=== PATIENT | female | born 1955 | race Caucasian/White ===

== ENCOUNTER 2024-01-14 13:55 | Inpatient (IN) | payer MEDICARE ==
[~2024-01-14] VITALS: Ht 157.5 cm; Wt 73.4 kg
[2024-01-14 14:32] LABS: BASOPHILS # (AUTO) 0.04 K/uL (0.00-0.20); BASOPHILS % (AUTO) 0.1 % (0.0-5.0); EOSINOPHILS # (AUTO) 0.01 K/uL (0.00-0.70); HEMATOCRIT 35.9 % (36-48); IMMATURE GRANULOCYTE ABSOLUTE 0.26 K/uL (0-1); LYMPHOCYTES # (AUTO) 3.6 K/uL (1.0-4.8); LYMPHOCYTES % (AUTO) 12.5 % (21.0-51.0); MEAN CORPUSCULAR HGB CONC 32.3 g/dL (32.0-36.0); MEAN CORPUSCULAR VOLUME 86.5 fL (79-99); MONOCYTES # (AUTO) 1.3 K/uL (0.1-1.0); MONOCYTES % (AUTO) 4.4 % (3.0-13.0); NEUTROPHILS # (AUTO) 23.7 K/uL (1.8-7.7); NEUTROPHILS % (AUTO) 82.1 % (40.0-77.0); PLATELET COUNT (AUTO) 254 K/uL (130-400); RED BLOOD CELL COUNT(AUTO) 4.15 MIL/uL (4.00-5.50); RED CELL DISTRIBUTION WIDTH 14.1 % (11.0-15.5); WHITE BLOOD COUNT (AUTO) 28.9 K/uL (4.8-10.8)
[2024-01-14 14:59] LABS: CREATININE 1.2 mg/dL (0.5-1.0); POTASSIUM 3.2 mmol/L (3.5-5.1)
[2024-01-14 15:03] LABS: ALBUMIN 2.6 g/dL (3.5-5.0); BILIRUBIN,TOTAL 0.7 mg/dL (0.2-1.0); TOTAL PROTEIN, SERUM 7.1 g/dL (6.0-8.3)
[2024-01-14 15:16] LABS: B-TYPE NATRIURETIC PEPTIDE 102 pg/mL (0-100)
[2024-01-14] MEDS ORDERED: IOHEXOL-350 50ML VIAL IV ONE (15:17)
[2024-01-14] MEDS: CEFTRIAXONE 2GM VIAL IVPB ONE (15:29)
[2024-01-14] MEDS: 0.9%NACL 1000ML 1,000 ML IV ONE (15:29)
[2024-01-14] MEDS ORDERED: LACTULOSE 20 GM/30 ML UDCUP PO PRN (16:30)
[2024-01-14] MEDS ORDERED: acetaMINOPHEN 325 MG TAB PO PRN ×3 (16:30)
[2024-01-14] MEDS ORDERED: ONDANSETRON 4MG INJ IV PRN (16:30)
[2024-01-14] MEDS ORDERED: DiphenhydrAMINE HCL 50 MG/ML VIAL IV PRN (16:30)
[2024-01-14] MEDS ORDERED: KETOROLAC 15MG/ML VIAL (15MG/ML) IV PRN (16:30)
[2024-01-14] MEDS: cefTRIAXone 1G VIAL 1 GM in 0.9%NACL 50ML 50 ML IV SCH (16:30)
[2024-01-14] MEDS ORDERED: ALBUTEROL 0.083% 2.5 MG/3 ML INH IH PRN (16:30)
[2024-01-14] MEDS ORDERED: NITROGLYCERIN 0.4 MG SL TAB SL PRN (16:30)
[2024-01-14] MEDS ORDERED: MAG/ALUM/SIMETH 30 ML UDCUP PO PRN (16:30)
[2024-01-14] MEDS ORDERED: FAMOTIDINE 20MG VIAL IV PRN (16:30)
[2024-01-14] MEDS ORDERED: VANCOMYCIN PROTOCOL PER PHARMACY IV PRN (16:30)
[2024-01-14] MEDS: INSULIN HUMULIN R 100 UNIT/ML 3ML SQ SCH (16:30)
[2024-01-14] MEDS ORDERED: hydrALAZine 20MG/ML VIAL IV PRN (16:30)
[2024-01-14] MEDS ORDERED: ZOLPidem TARTrate 5 MG TAB PO PRN (16:30)
[2024-01-14] MEDS: POTASSIUM BICARB/CIT AC 25 MEQ TABLET.EFF PO ONE (16:46)
[2024-01-14] MEDS: AZITHROMYCIN 500MG+NS 250ML 250 ML IVPB STA (16:47)
[2024-01-14 17:19] VITALS: PULSE 91; RESP 18
[2024-01-14] MEDS: ALBUTEROL 0.083% 2.5 MG/3 ML INH IH SCH (17:27)
[2024-01-14] MEDS: ALBUTEROL 0.083% 2.5 MG/3 ML INH IH ONE (17:27)
[2024-01-14 17:30] LABS: INR 1.32 (0.85-1.15)
[2024-01-14 17:32] LABS: PARTIAL THROMBOPLASTIN TIME 35.3 SEC (26.3-35.5)
[2024-01-14] MEDS: 0.9%NACL 1000ML 1,000 ML IV SCH (17:46)
[2024-01-14] MEDS: HEPARIN 25,000 UNITS/250ML D5W 250 ML IV SCH (17:48)
[2024-01-14] MEDS ORDERED: PANT40TA54 PO (18:00)
[2024-01-14] MEDS ORDERED: BENZ-226 PO (18:00)
[2024-01-14] MEDS ORDERED: IPRA21SP NS (18:00)
[2024-01-14] MEDS ORDERED: FEXO-263 PO (18:00)
[2024-01-14] MEDS ORDERED: FURO20TA4 PO (18:00)
[2024-01-14] MEDS ORDERED: FLUT16H NASAL (18:00)
[2024-01-14] MEDS ORDERED: HYDR-4060 PO (18:00)
[2024-01-14] MEDS ORDERED: ERGO2000 PO (18:00)
[2024-01-14] MEDS: HEPARIN 5,000 UNIT VIAL IV PRN (18:49)
[2024-01-14] MEDS: VANCOMYCIN 1G/250ML KIT 250 ML IV SCH (18:50)
[2024-01-14] MEDS: FAMOTIDINE 20MG VIAL IV SCH (20:28)
[2024-01-14 21:04] VITALS: PULSE 92; RESP 18; O2SAT 98
[2024-01-14 22:36] LABS: INR 1.11 (0.85-1.15); PROTHROMBIN TIME 11.9 SEC (9.6-11.6)
[2024-01-14 22:37] LABS: PARTIAL THROMBOPLASTIN TIME 48.7 SEC (26.3-35.5)
[2024-01-15] VITALS (18 sets, daily range): BP systolic 102–146; BP diastolic 44–69; PULSE 88–148; RESP 18–37; O2SAT 94–98
[2024-01-15 01:09] LABS: HEMOGLOBIN A1C 6.3 % (4.0-6.0)
[2024-01-15 04:04] LABS: BASOPHILS # (AUTO) 0.06 K/uL (0.00-0.20); BASOPHILS % (AUTO) 0.2 % (0.0-5.0); EOSINOPHILS # (AUTO) 0.05 K/uL (0.00-0.70); EOSINOPHILS % (AUTO) 0.2 % (0.0-8.0); HEMATOCRIT 30.4 % (36-48); IMMATURE GRANULOCYTE ABSOLUTE 0.24 K/uL (0-1); LYMPHOCYTES # (AUTO) 3.8 K/uL (1.0-4.8); MEAN CORPUSCULAR HEMOGLOBIN 28.4 pg (27.0-33.0); MEAN CORPUSCULAR HGB CONC 32.6 g/dL (32.0-36.0); MEAN CORPUSCULAR VOLUME 87.4 fL (79-99); MONOCYTES # (AUTO) 1.6 K/uL (0.1-1.0); MONOCYTES % (AUTO) 6.3 % (3.0-13.0); NEUTROPHILS # (AUTO) 19.5 K/uL (1.8-7.7); NEUTROPHILS % (AUTO) 77.3 % (40.0-77.0); PLATELET COUNT (AUTO) 261 K/uL (130-400); RED BLOOD CELL COUNT(AUTO) 3.48 MIL/uL (4.00-5.50); RED CELL DISTRIBUTION WIDTH 14.2 % (11.0-15.5); WHITE BLOOD COUNT (AUTO) 25.2 K/uL (4.8-10.8)
[2024-01-15 04:23] LABS: ALANINE AMINOTRANSFERASE 49 U/L (12-78); ASPARTATE AMINOTRANSFERASE 40 U/L (10-37); BILIRUBIN,DIRECT 0.2 mg/dL (0.0-0.3); BILIRUBIN,TOTAL 0.6 mg/dL (0.2-1.0); CARBON DIOXIDE 24 mmol/L (21-32); CHLORIDE 103 mmol/L (101-111); CREATINE KINASE, TOTAL 16 U/L (21-232); CREATININE 0.8 mg/dL (0.5-1.0); GLOMERULAR FILTR. RATE CALC 79 mL/min (>90); GLUCOSE,RANDOM 118 mg/dL (70-105); POTASSIUM 3.2 mmol/L (3.5-5.1); SODIUM SERUM 138 mmol/L (136-145); TOTAL PROTEIN, SERUM 5.7 g/dL (6.0-8.3); UREA NITROGEN, BLOOD 13 mg/dL (7-18)
[2024-01-15 04:40] LABS: AMMONIA < 10 umol/L (11-32)
[2024-01-15 05:00] LABS: INR 1.06 (0.85-1.15); PROTHROMBIN TIME 11.4 SEC (9.6-11.6)
[2024-01-15] MEDS: POTASSIUM CHLORIDE 10MEQ/100ML 100 ML IV PRN (05:31)
[2024-01-15] MEDS: CLOPIDOGREL 75MG TAB PO SCH (09:22)
[2024-01-15] MEDS: POTASSIUM CHLORIDE 10MEQ SR TAB PO PRN (09:23)
[2024-01-15] MEDS: MAGNESIUM 2GM PREMIX 50ML 50 ML IV PRN (10:18)
[2024-01-15] MEDS: KCL 20 MEQ ERTAB PO ONE (10:19)
[2024-01-15 10:54] LABS: INR 1.06 (0.85-1.15); PROTHROMBIN TIME 11.4 SEC (9.6-11.6)
[2024-01-15] MEDS: cefTRIAXone 1G VIAL IVPB SCH (15:04)
[2024-01-15] MEDS: BENZONATATE 100 MG CAPSULE PO SCH (15:04)
[2024-01-15] MEDS: GUAIFENESIN-DM 200/20 MG 10 ML PO PRN (15:22)
[2024-01-15] MEDS ORDERED: IOHEXOL 350 MG/ML 100ML INFUS..BTL IV ONE (20:40)
[2024-01-15] MEDS ORDERED: IOHEXOL-350 50ML VIAL IV ONE (20:40)
[2024-01-15] MEDS ORDERED: IOHEXOL-350 75 ML VIAL IV ONE (20:41)
[2024-01-15] MEDS ORDERED: PHARMACY COMMUNICATION MISC SCH (21:30)
[2024-01-15] MEDS ORDERED: ALTEPLASE 100 MG VIAL IVP ONE ×2 (22:30)
[2024-01-15] MEDS: PHARMACY COMMUNICATION MISC SCH (23:49)
[2024-01-16] VITALS (72 sets, daily range): BP systolic 94–133; BP diastolic 48–74; PULSE 86–155; RESP 11–28; O2SAT 92–96
[2024-01-16] MEDS: FUROSEMIDE 20 MG TABLET PO SCH (08:30)
[2024-01-16] MEDS: Fexofenadine HCl 180 MG PO SCH (08:31)
[2024-01-16] MEDS: POTASSIUM CHLORIDE 10% ELIXIR 20 MEQ/15 ML UDCUP PO PRN (08:32)
[2024-01-16 10:31] LABS: HEMATOCRIT 30.3 % (36-48); MEAN CORPUSCULAR HEMOGLOBIN 28.2 pg (27.0-33.0); MEAN CORPUSCULAR HGB CONC 32.3 g/dL (32.0-36.0); MEAN CORPUSCULAR VOLUME 87.3 fL (79-99); RED BLOOD CELL COUNT(AUTO) 3.47 MIL/uL (4.00-5.50); RED CELL DISTRIBUTION WIDTH 14.5 % (11.0-15.5); WHITE BLOOD COUNT (AUTO) 27.3 K/uL (4.8-10.8)
[2024-01-16 10:39] LABS: CREATININE 0.7 mg/dL (0.5-1.0); POTASSIUM 3.6 mmol/L (3.5-5.1)
[2024-01-16 10:40] LABS: INR 1.07 (0.85-1.15); PROTHROMBIN TIME 11.5 SEC (9.6-11.6)
[2024-01-16 10:42] LABS: PARTIAL THROMBOPLASTIN TIME 54.7 SEC (26.3-35.5)
[2024-01-16 10:44] LABS: ALBUMIN 1.9 g/dL (3.5-5.0); BILIRUBIN,TOTAL 0.6 mg/dL (0.2-1.0); TOTAL PROTEIN, SERUM 5.6 g/dL (6.0-8.3)
[2024-01-16] MEDS: KCL 20 MEQ ERTAB PO ONE (12:05)
[2024-01-16] MEDS: CEFTRIAXONE 2GM VIAL IVPB SCH (14:12)
[2024-01-16] MEDS: HEPARIN 5,000 UNIT VIAL IV STA (18:55)
[2024-01-19] MEDS ORDERED: ERGOCALCIFEROL (VITAMIN D2) 50,000 UNIT CAPSULE PO SCH (09:00)
== END 2024-01-16 21:00 | disposition short-term general hospital (02) | DRG 299 ==
LOC: EDH 13:55 → EDHIP 16:27 → 2DH 23:35 → 2CH 01-15 22:48
PROVIDERS: ADMIT Hospitalist; ATTEND Hospitalist
DX: I82.412 Acute embolism and thrombosis of left femoral vein (principal); J18.9 Pneumonia, unspecified organism; J96.01 Acute respiratory failure with hypoxia; I13.0 Hypertensive heart and chronic kidney disease with heart failure and stage 1 through stage 4 chronic kidney disease, or unspecified chronic kidney disease; J44.0 Chronic obstructive pulmonary disease with (acute) lower respiratory infection; N17.9 Acute kidney failure, unspecified; I82.432 Acute embolism and thrombosis of left popliteal vein; I82.442 Acute embolism and thrombosis of left tibial vein; D64.9 Anemia, unspecified; E11.22 Type 2 diabetes mellitus with diabetic chronic kidney disease; E11.51 Type 2 diabetes mellitus with diabetic peripheral angiopathy without gangrene; E11.65 Type 2 diabetes mellitus with hyperglycemia; E86.0 Dehydration; F17.210 Nicotine dependence, cigarettes, uncomplicated; I25.10 Atherosclerotic heart disease of native coronary artery without angina pectoris; I50.9 Heart failure, unspecified; I99.8 Other disorder of circulatory system; K21.9 Gastro-esophageal reflux disease without esophagitis; E87.6 Hypokalemia; M81.0 Age-related osteoporosis without current pathological fracture; N18.9 Chronic kidney disease, unspecified; Z90.49 Acquired absence of other specified parts of digestive tract; Z90.710 Acquired absence of both cervix and uterus
CPT/HCPCS: 36415; 71045; 71260; 71275; 75635; 80048; 80053; 80076; 82140; 82550; 82948; 83036; 83605; 83735; 83880; 84145; 85025; 85027; 85378; 85610; 85730; 87040; 87426; 93005; 93306; 93925; 93971; 94640; 94664; G0378; J0456; J0696; J1644; J2997; J3370; J3475; J3480; J3490; J7030; Q9967

== ENCOUNTER 2024-01-31 14:25 | Inpatient (IN) | payer MEDICARE ==
[~2024-01-31] VITALS: Ht 157.5 cm; Wt 69.1 kg
[~2024-01-31 14:25] MED LIST: BENZ-226 PO; ERGO2000 PO; FEXO-263 PO; FLUT16H NASAL; FURO20TA4 PO; HYDR-4060 PO; IPRA21SP NS; PANT40TA54 PO
[2024-01-31 15:03] LABS: BASOPHILS # (AUTO) 0.03 K/uL (0.00-0.20); BASOPHILS % (AUTO) 0.1 % (0.0-5.0); HEMATOCRIT 26.3 % (36-48); IMMATURE GRANULOCYTE ABSOLUTE 0.14 K/uL (0-1); LYMPHOCYTES # (AUTO) 3.4 K/uL (1.0-4.8); LYMPHOCYTES % (AUTO) 14.1 % (21.0-51.0); MEAN CORPUSCULAR HEMOGLOBIN 28.5 pg (27.0-33.0); MEAN CORPUSCULAR HGB CONC 31.6 g/dL (32.0-36.0); MEAN CORPUSCULAR VOLUME 90.4 fL (79-99); MONOCYTES # (AUTO) 1.5 K/uL (0.1-1.0); MONOCYTES % (AUTO) 6.2 % (3.0-13.0); PLATELET COUNT (AUTO) 274 K/uL (130-400); RED BLOOD CELL COUNT(AUTO) 2.91 MIL/uL (4.00-5.50); RED CELL DISTRIBUTION WIDTH 16.8 % (11.0-15.5)
[2024-01-31 15:12] LABS: CREATININE 0.6 mg/dL (0.5-1.0); POTASSIUM 3.9 mmol/L (3.5-5.1)
[2024-01-31 15:15] LABS: INR 1.18 (0.85-1.15); PROTHROMBIN TIME 12.6 SEC (9.6-11.6)
[2024-01-31 15:17] LABS: PARTIAL THROMBOPLASTIN TIME 34.2 SEC (26.3-35.5)
[2024-01-31 15:23] LABS: MAGNESIUM 1.8 mg/dL (1.80-2.40)
[2024-01-31 15:34] LABS: B-TYPE NATRIURETIC PEPTIDE 186 pg/mL (0-100)
[2024-01-31 16:08] LABS: RAPID GROUP A STREP negative (NEGATIVE)
[2024-01-31 16:13] LABS: SARS-CoV-2, RNA, NAAT NEGATIVE SARS CoV-2 (NEGATIVE)
[2024-01-31 16:17] LABS: INFLUENZA TYPE A Negative For Type A (NEGATIVE); INFLUENZA TYPE B Negative For Type B (NEGATIVE)
[2024-01-31] MEDS ORDERED: IOHEXOL-350 75 ML VIAL IV ONE (16:51)
[2024-01-31 18:33] LABS: ADD UA MICROSCOPIC YES; APPEARANCE,URINE CLEAR (CLEAR); BILIRUBIN,URINE NEGATIVE (NEGATIVE); COLOR,URINE LIGHT-YELLOW (YELLOW); GLUCOSE, URINE (UA) 30 mg/dL (NEGATIVE); KETONES,URINE 40 mg/dL (NEGATIVE); LEUKOCYTE ESTERASE ,URINE NEGATIVE Leu/uL (NEGATIVE); NITRATE,URINE NEGATIVE (NEGATIVE); OCCULT BLOOD,URINE NEGATIVE (NEGATIVE); PH,URINE 6.5 (5.0-8.0); PROTEIN,URINE 30 mg/dL (NEGATIVE); UROBILINOGEN,URINE 0.2 mg/dL (0.2-1.0)
[2024-01-31 18:38] LABS: MUCUS,URINE RARE LPF (None Seen); OTHER CASTS, URINE 1 /LPF (None Seen); SQUAMOUS EPITHELIAL CELL,UR RARE /HPF (0-2)
[2024-01-31] MEDS ORDERED: TEMAZEPAM 15 MG CAPSULE PO PRN (19:00)
[2024-01-31] MEDS ORDERED: ALBUTEROL 0.083% 2.5 MG/3 ML INH IH PRN (19:00)
[2024-01-31] MEDS ORDERED: ONDANSETRON 4MG INJ IVP PRN (19:00)
[2024-01-31] MEDS ORDERED: LACTULOSE 20 GM/30 ML UDCUP PO PRN (19:00)
[2024-01-31] MEDS ORDERED: acetaMINOPHEN 325 MG TAB PO PRN (19:00)
[2024-01-31] MEDS ORDERED: NITROGLYCERIN 0.4 MG SL TAB SL PRN (19:00)
[2024-01-31] MEDS ORDERED: hydrALAZine 20MG/ML VIAL IV PRN (19:00)
[2024-01-31] MEDS ORDERED: acetaMINOPHEN 650 MG SUPPOSITORY RC PRN (19:00)
[2024-01-31] MEDS ORDERED: IpraTROPium 0.5 MG/2.5 ML INH IH PRN (19:00)
[2024-01-31] MEDS ORDERED: doCUSate SODIUM 100 MG CAP PO PRN (19:00)
[2024-01-31 19:34] LABS: ABG BASE EXCESS 1.3 mmol/L (-2.0-3.0); ABG HCO3 22.7 mmol/L (21.0-28.0); ABG OXYGEN SATURATION 88.5 % (94.0-98.0); ABG PCO2 28 mmHg (32-45); ABG PH 7.527 (7.350-7.450); DEVICE COMMENT LR RN; PO2, ARTERIAL BG 47.7 mmHg (83.0-108.0); VENT MODE, BG RA (ROOM AIR)
[2024-01-31] MEDS ORDERED: FEXO180T94 PO (19:47)
[2024-01-31] MEDS: atorVAStatin 40 MG TABLET PO SCH (20:17)
[2024-01-31] MEDS: furoSEMIDE 20MG VIAL IV SCH (20:17)
[2024-01-31] MEDS: INSULIN humuLIN R 100 UNIT/ML 3ML SQ SCH (21:00)
[2024-01-31] MEDS: ALBUTEROL 0.083% 2.5 MG/3 ML INH IH SCH (21:17)
[2024-01-31] MEDS: IpraTROPium 0.5 MG/2.5 ML INH IH SCH (21:17)
[2024-01-31 21:20] VITALS: PULSE 87; RESP 19
[2024-01-31 21:21] VITALS: PULSE 87; RESP 19; O2SAT 98
[2024-01-31] MEDS ORDERED: MAGN400T51 PO (21:30)
[2024-01-31] MEDS ORDERED: APIX5TAB PO (21:30)
[2024-01-31] MEDS ORDERED: POTA-192 PO (21:30)
[2024-01-31] MEDS ORDERED: METO25TA6 PO (21:30)
[2024-01-31] MEDS: DOXYCYCLINE 100MG+NS 250ML 250 ML IV SCH (21:34)
[2024-01-31] MEDS: Solu-medROL 125MG VIAL IVP ONE (21:35)
[2024-01-31] MEDS: cefTRIAXone 1G VIAL IVPB SCH (22:20)
[2024-01-31] MEDS ORDERED: guaiFENesin SUGAR-FREE 100 MG/5 ML UDCUP PO PRN (22:30)
[2024-01-31 23:00] VITALS: BP 121/57; PULSE 79; RESP 18; TEMP 98.5
[2024-01-31 23:37] VITALS: PULSE 87; RESP 19
[2024-01-31] MEDS: SODIUM CHLORIDE 3% FOR INHALATION 4 ML/AMP VIAL.NEB IH ONE (23:44)
[2024-02-01] VITALS (12 sets, daily range): BP systolic 109–118; BP diastolic 47–56; PULSE 88–100; RESP 18–28; TEMP 98–98.8; O2SAT 86–97
[2024-02-01 00:47] LABS: BASOPHILS # (AUTO) 0.03 K/uL (0.00-0.20); BASOPHILS % (AUTO) 0.1 % (0.0-5.0); EOSINOPHILS # (AUTO) 0.01 K/uL (0.00-0.70); HEMATOCRIT 27.4 % (36-48); IMMATURE GRANULOCYTE ABSOLUTE 0.11 K/uL (0-1); LYMPHOCYTES # (AUTO) 1.4 K/uL (1.0-4.8); LYMPHOCYTES % (AUTO) 6.4 % (21.0-51.0); MEAN CORPUSCULAR HEMOGLOBIN 28.5 pg (27.0-33.0); MEAN CORPUSCULAR HGB CONC 31.4 g/dL (32.0-36.0); MEAN CORPUSCULAR VOLUME 90.7 fL (79-99); MONOCYTES # (AUTO) 0.4 K/uL (0.1-1.0); MONOCYTES % (AUTO) 1.9 % (3.0-13.0); NEUTROPHILS # (AUTO) 19.7 K/uL (1.8-7.7); NEUTROPHILS % (AUTO) 91.1 % (40.0-77.0); PLATELET COUNT (AUTO) 249 K/uL (130-400); RED BLOOD CELL COUNT(AUTO) 3.02 MIL/uL (4.00-5.50); WHITE BLOOD COUNT (AUTO) 21.6 K/uL (4.8-10.8)
[2024-02-01] MEDS: HEParin 25,000 UNITS/250ML D5W 250 ML IV SCH (01:16)
[2024-02-01 01:27] LABS: CREATININE 0.7 mg/dL (0.5-1.0); MAGNESIUM 1.7 mg/dL (1.80-2.40); POTASSIUM 3.4 mmol/L (3.5-5.1); THYROID STIMULATING HORMONE 0.69 uIU/mL (0.36-3.74)
[2024-02-01] MEDS ORDERED: POTASSIUM CHLORIDE 20MEQ/100ML 100 ML IV PRN (03:30)
[2024-02-01] MEDS: Solu-medROL 125MG VIAL IVP SCH (04:33)
[2024-02-01] MEDS: MAGNESIUM 2GM PREMIX 50ML 50 ML IV PRN (04:38)
[2024-02-01] MEDS: KCL 20 MEQ ERTAB PO PRN (05:47)
[2024-02-01] MEDS: SODIUM CHLORIDE 3% FOR INHALATION 4 ML/AMP VIAL.NEB IH ONE ×2 (07:07→16:00)
[2024-02-01 07:29] LABS: ABG BASE EXCESS 1.8 mmol/L (-2.0-3.0); ABG HCO3 23.6 mmol/L (21.0-28.0); ABG OXYGEN SATURATION 88.4 % (94.0-98.0); ABG PCO2 29 mmHg (32-45); ABG PH 7.523 (7.350-7.450); PO2, ARTERIAL BG 47.9 mmHg (83.0-108.0); VENT MODE, BG RA (ROOM AIR)
[2024-02-01] MEDS: PANTOPRAZOLE 40 MG/VIAL IVP SCH (08:44)
[2024-02-01] MEDS ORDERED: APIXaban 5 MG TABLET PO SCH (09:00)
[2024-02-01] MEDS ORDERED: SODIUM CHLORIDE 3% FOR INHALATION 4 ML/AMP VIAL.NEB IH ONE (10:57)
[2024-02-01] MEDS ORDERED: LACE ASSESSMENT (SCORE > 11) MISC SCH (12:00)
[2024-02-01] MEDS: Solu-medROL 40MG VIAL IVP SCH (13:00)
[2024-02-01] MEDS: monteLUKAST sodIUM 10 MG TAB PO SCH (21:12)
[2024-02-02 00:19] VITALS: BP 112/56; PULSE 97; RESP 18; TEMP 99
[2024-02-02 03:53] VITALS: BP 107/57; PULSE 92; RESP 18; TEMP 98
[2024-02-02 06:23] LABS: HEMATOCRIT 24.2 % (36-48); MEAN CORPUSCULAR VOLUME 90.3 fL (79-99); PLATELET COUNT (AUTO) 317 K/uL (130-400); RED BLOOD CELL COUNT(AUTO) 2.68 MIL/uL (4.00-5.50); RED CELL DISTRIBUTION WIDTH 17.2 % (11.0-15.5); WHITE BLOOD COUNT (AUTO) 23.7 K/uL (4.8-10.8)
[2024-02-02 06:38] VITALS: PULSE 87; RESP 20; O2SAT 90
[2024-02-02 06:40] LABS: CREATININE 0.7 mg/dL (0.5-1.0); POTASSIUM 3.5 mmol/L (3.5-5.1)
[2024-02-02 07:00] VITALS: BP 112/63; PULSE 98; RESP 18; TEMP 97.9
[2024-02-02] MEDS: ENOXAPARIN SODIUM 120 MG/0.8ML SQ ONE (09:12)
[2024-02-02] MEDS: POTASSIUM CHLORIDE 10% ELIXIR 20 MEQ/15 ML UDCUP PO PRN (09:16)
[2024-02-02 09:46] VITALS: O2SAT 92
[2024-02-02] MEDS ORDERED: PRED20TA3 PO (10:14)
[2024-02-02] MEDS ORDERED: PANT40TA PO (10:14)
== END 2024-02-02 12:05 | disposition home or self-care (01) | DRG 291 ==
LOC: EDH 14:25 → EDHIP 18:46 → 2AH 22:43
PROVIDERS: ADMIT Hospitalist; ATTEND Hospitalist
DX: I11.0 Hypertensive heart disease with heart failure (principal); I50.33 Acute on chronic diastolic (congestive) heart failure; J96.01 Acute respiratory failure with hypoxia; C34.01 Malignant neoplasm of right main bronchus; J44.1 Chronic obstructive pulmonary disease with (acute) exacerbation; I24.9 Acute ischemic heart disease, unspecified; I82.412 Acute embolism and thrombosis of left femoral vein; I82.890 Acute embolism and thrombosis of other specified veins; I48.91 Unspecified atrial fibrillation; K21.9 Gastro-esophageal reflux disease without esophagitis; E11.65 Type 2 diabetes mellitus with hyperglycemia; R23.0 Cyanosis; D72.829 Elevated white blood cell count, unspecified; E11.51 Type 2 diabetes mellitus with diabetic peripheral angiopathy without gangrene; D64.9 Anemia, unspecified; Z85.118 Personal history of other malignant neoplasm of bronchus and lung; Z87.891 Personal history of nicotine dependence; Z79.899 Other long term (current) drug therapy; Z88.6 Allergy status to analgesic agent; Z90.710 Acquired absence of both cervix and uterus; Z90.49 Acquired absence of other specified parts of digestive tract; Z88.8 Allergy status to other drugs, medicaments and biological substances
CPT/HCPCS: 36415; 36600; 71045; 71270; 80048; 81001; 82550; 82803; 82948; 83735; 83880; 84100; 84145; 84443; 84484; 85025; 85027; 85610; 85730; 87635; 87804; 87880; 93005; 93306; 93356; 93925; 93970; 94640; G0378; J0696; J1644; J1650; J1940; J2470; J2919; J3475; J3490; Q9967